=== PATIENT | male | born 1935 | race Caucasian/White ===

== ENCOUNTER 2017-02-13 16:02 | Emergency (ER) | payer OTHER ==
[2017-02-13 16:26] VITALS: TEMP 98.1
--- NOTE | 2017-02-13 18:29 | EDPHY ---
H & P Time Seen by Provider: 02/13/17 17:57 HPI/ROS: CHIEF COMPLAINT: The food did not go down HISTORY OF PRESENT ILLNESS: A 2-year-old man has a symptoms intermittently for the past year. They have been worse over the past week and then today was pretty severe. He had episodes 3 or 4 times this week. Tonight he had pasta salad with turkey and felt like the food just did not go all the way down. He felt like it was stuck in his esophagus behind his lower chest. No trouble breathing and no coughing. For he tried making himself vomit but it did not initially,. Finally he vomited in the car on the way here and now he feels asymptomatic. He had increased production of saliva. No abdominal pain and no nausea or diarrhea. REVIEW OF SYSTEMS: Eye: no change in vision ENT: no sore throat Cardiac: no chest pain or syncope Pulmonary: no cough or SOB Abdomen: HPI Musculoskeletal: no back pain Skin: no rash Neuro: no headache Constitutional: no fever : no urinary symptoms A comprehensive 10 point review of systems is otherwise negative aside from elements mentioned in the history of present illness. PAST MEDICAL HISTORY: Negative Social history: Recently moved from [place] and staying with their son and his family. General Appearance: Alert and conversant, cooperative. Eyes: No scleral icterus. ENT, Mouth: Normal mucous membranes. Respiratory: Normal respiratory effort, breath sounds equal, lungs are clear to auscultation. Cardiovascular: Regular rate and rhythm. Gastrointestinal: Abdomen is soft and non tender. Neurological: Alert and oriented x3. Normally conversant. Face symmetric, normal movement and sensation in all extremities. Skin: Warm and dry, no rashes. Musculoskeletal: No peripheral edema and no joint swelling. Psychiatric: Not agitated. Emergency Department course/MDM: Patient presents with clinical history which would be likely to be a esophageal stricture. Currently does not have 100% food impaction. Patient describes that this symptom never happens with liquids and only with food. He is warned to cut his food smaller and chew more, call Gastroenterology for endoscopy within the next couple of weeks. Does not have 100 present food impaction at this time, is asymptomatic. I think it is unlikely he has ACS, bowel obstruction, acute surgical abdominal process, GI bleed. Smoking Status: Never smoked Constitutional: Initial Vital Signs Temperature (C) 36.7 C 09/25/17 16:15 Heart Rate 76 02/13/17 16:15 Respiratory Rate 18 02/13/17 16:15 Blood Pressure 135/82 H 02/13/17 16:15 O2 Sat (%) 95 02/13/17 16:15 O2 Delivery Mode Room Air Allergies/Adverse Reactions: No Known Allergies Allergy (Unverified 02/13/17 16:27) Home Medications: Medication Instructions Recorded Ranitidine HCl [Zantac] 150 mg PO 02/13/17 Ranitidine HCl [Zantac] 150 mg PO HS #15 tablet 02/13/17 MDM/Departure - Depart Disposition: Home, Routine, Self-Care Clinical Impression: Food impaction of esophagus Qualifiers: Encounter type: initial encounter Qualified Code(s): T18.128A - Food in esophagus causing other injury, initial encounter Condition: Good Instructions: Food Impaction (ED) Additional Instructions: Call follow-up mechanic industrial truck Dr. Padilla tomorrow the for the office appointment. I think it is likely that you need endoscopy for a possible esophageal stricture. Prescriptions: Ranitidine HCl [Zantac] 150 mg PO HS #15 tablet Referrals: Brandon Hooker [Primary Care Provider] - As per Instructions Katerin Padilla MD [Medical Doctor] - As per Instructions
[2017-02-13 18:47] VITALS: BP 171/82; PULSE 61; RESP 16; O2SAT 97
== END 2017-02-13 18:45 | disposition home or self-care (01) ==
DX: T18.128A Food in esophagus causing other injury, initial encounter (principal); X58.XXXA Exposure to other specified factors, initial encounter